=== PATIENT | female | born 1965 | race Hispanic/Latino ===

== ENCOUNTER 2017-06-15 07:05 | Emergency (ER) | payer BC ==
[~2017-06-15] VITALS: Ht 162.6 cm; Wt 80.0 kg
[2017-06-15 07:17] VITALS: BP 120/81
[2017-06-15] MEDS ORDERED: ZITHROMAX Z-PA250 MG PO (07:29)
[2017-06-15] MEDS ORDERED: CHERATUSSIN PO (07:40)
== END 2017-06-15 08:08 | disposition home or self-care (01) | DRG 153 ==
LOC: ED 07:05
DX: J06.9 Acute upper respiratory infection, unspecified (principal)

== ENCOUNTER 2017-07-29 11:43 | Emergency (ER) | payer BC ==
[~2017-07-29] VITALS: Ht 162.6 cm; Wt 78.0 kg
[~2017-07-29 11:43] MED LIST: CHERATUSSIN PO; ZITHROMAX Z-PA250 MG PO
[2017-07-29 12:26] LABS: INFLUENZA A NONE DETECTED (NONE DETECT); INFLUENZA B NONE DETECTED (NONE DETECT)
[2017-07-29 12:49] LABS: HEMATOCRIT 38.7 % (37.0-47.0); IMMATURE GRANULOCYTES 0.3 % (0.0-1.0); MEAN CELL VOLUME 92.6 fL CALC (80.0-100.0); MEAN CORPUSCULAR HGB 31.1 pG CALC (26.0-32.0); MEAN CORPUSCULAR HGB CONC 33.6 g/L CALC (32.0-36.0); NEUT# 5.91 thou/uL (2.00-7.15); RED BLOOD COUNT 4.18 mill/uL (4.20-5.60); RED CELL DISTRI WIDTH 13.6 % (11.5-15.5); URINE BILIRUBIN - DIPSTICK NEGATIVE (NEGATIVE); URINE BLOOD DIPSTICK NEGATIVE (NEGATIVE); URINE COLOR YELLOW; URINE GLUCOSE - DIPSTICK NEGATIVE (NEGATIVE); URINE KETONE NEGATIVE (NEGATIVE); URINE LEUK ESTERASE NEGATIVE (NEGATIVE); URINE NITRITE - DIPSTICK NEGATIVE (Negative); URINE PROTEIN - DIPSTICK NEGATIVE (NEG-TRACE); URINE SPECIFIC GRAVITY >=1.030; URINE UROBILINOGEN - DIPSTICK 0.2 E.U./dL (0.2)
[2017-07-29 12:52] LABS: URINE CLARITY SL CLOUDY
[2017-07-29 13:02] LABS: ALBUMIN 4.5 g/dL (3.2-5.0); ALKALINE PHOSPHATASE 107 u/l (38-126); ANION GAP 19 (6-22 (CALC)); BILIRUBIN, TOTAL 0.4 mg/dL (0.0-1.4); BUN 10 mg/dL (7-17); BUN/CREATININE RATIO 15 (12-20 (CALC)); CARBON DIOXIDE 28 mmol/l (22-30); CHLORIDE 101 mmol/l (95-108); CREATININE 0.7 mg/dL (0.5-1.0); GFR > 60 ML/MIN (>=60 (CALC)); GFR FOR AFR.AMER. > 60 ML/MIN (>=60 (CALC)); POTASSIUM 3.4 mmol/l (3.5-5.1); SGOT/AST 42 u/l (14-36); SGPT/ALT 55 u/l (9-52); SODIUM 144 mmol/l (137-146); TOTAL PROTEIN 7.8 g/dL (6.3-8.2)
[2017-07-29] MEDS ORDERED: TORADOL PO (13:10)
[2017-07-29] MEDS ORDERED: ZOFRAN4 MG/TAB PO (13:10)
[2017-07-29 13:20] VITALS: BP 126/88
== END 2017-07-29 13:20 | disposition home or self-care (01) | DRG 103 ==
LOC: ED 11:43
PROVIDERS: Emergency Medicine
DX: R51 Headache (principal)

== ENCOUNTER 2019-08-31 | Observation (INO) | payer SELFPAY ==
[~2019-08-31] MED LIST changes: +TORADOL PO; +ZOFRAN4 MG/TAB PO
[2019-08-31] MEDS ORDERED: CELEBREX200 M1 PO (08:37)
--- NOTE | 2019-08-31 08:40 | NUR ---
PT CHANGED TO GOWN. MONITORS APPLIED. PT AO X 3. [place]OV[place] SPEAKING ONLY. 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 PT REPORTS RIGHT LOWER ABDOMINAL PAIN SINCE LAST NIGHT. ABD TENDER TO PALPATION RIGHT LOWER QUADRANT.
--- NOTE | 2019-08-31 08:45 | NUR ---
PT AMBULATORY TO BATHROOM. URINE SPECIMEN OBTAINED AND SENT TO LAB.
--- NOTE | 2019-08-31 08:54 | NUR ---
PT MEDICATED FOR PAIN AND NAUSEA.
[2019-08-31 09:01] LABS: HEMATOCRIT 38.7 % (37.0-47.0); HEMOGLOBIN 13.1 g/dl (12.0-16.0); IMMATURE GRANULOCYTES 0.3 % (0.0-5.0); MEAN CELL VOLUME 92.6 fL CALC (80.0-100.0); MEAN CORPUSCULAR HGB 31.3 pG CALC (26.0-32.0); MEAN CORPUSCULAR HGB CONC 33.9 g/dL CAL (32.0-36.0); NEUT# 10.93 thou/uL (2.00-7.15); RED BLOOD COUNT 4.18 mill/uL (4.20-5.60); RED CELL DISTRI WIDTH 13.1 % (11.5-15.5)
[2019-08-31 09:03] LABS: URINE BILIRUBIN - DIPSTICK NEGATIVE (NEGATIVE); URINE BLOOD DIPSTICK NEGATIVE (NEGATIVE); URINE COLOR YELLOW; URINE GLUCOSE - DIPSTICK NEGATIVE (NEGATIVE); URINE KETONE NEGATIVE (NEGATIVE); URINE LEUK ESTERASE NEGATIVE (NEGATIVE); URINE NITRITE - DIPSTICK NEGATIVE (Negative); URINE PH 7.5 (4.5-8.0); URINE PROTEIN - DIPSTICK NEGATIVE (NEG-TRACE); URINE SPECIFIC GRAVITY 1.015; URINE UROBILINOGEN - DIPSTICK 0.2 E.U./dL (0.2)
[2019-08-31 09:26] LABS: ALBUMIN 4.7 g/dL (3.2-5.0); ALKALINE PHOSPHATASE 78 u/l (38-126); AMYLASE 56 u/l (30-110); ANION GAP 13 (6-22 (CALC)); BILIRUBIN, TOTAL 0.5 mg/dL (0.0-1.4); BUN 14 mg/dL (7-17); BUN/CREATININE RATIO 21 (12-20 (CALC)); CARBON DIOXIDE 29 mmol/l (22-30); CHLORIDE 100 mmol/l (95-108); CREATININE 0.7 mg/dL (0.5-1.0); GFR > 60 ML/MIN (>=60 (CALC)); GFR FOR AFR.AMER. > 60 ML/MIN (>=60 (CALC)); LIPASE 34 u/l (23-300); POTASSIUM 3.8 mmol/l (3.5-5.1); SGOT/AST 40 u/l (14-36); SODIUM 139 mmol/l (137-146)
--- NOTE | 2019-08-31 09:27 | NUR ---
PT REPORTS PAIN 5/10 AT THIS TIME. RESTING ON STRETCHER, TALKING ON PHONE
--- NOTE | 2019-08-31 09:57 | NUR ---
RETURNED FROM CT. WARM BLANKET GIVEN, POSITIONED FOR COMFORT
--- NOTE | 2019-08-31 10:10 | NUR ---
SBAR PRINTED TO FLOOR
--- NOTE | 2019-08-31 10:22 | NUR ---
ANTIBIOTICS STARTED. PT AWAITING OR.
--- NOTE | 2019-08-31 10:50 | NUR ---
PT TO OR VIA STRETCHER.
--- NOTE | 2019-08-31 10:54 | NUR ---
REPORT GIVEN TO [facility]
[2019-08-31 13:49] LABS: PROTHROMBIN TIME 10.7 SECONDS (9.0-12.5)
== END 2019-08-31 14:07 | disposition home or self-care (01) | DRG 343 ==
PROVIDERS: ADMIT Surgery
PROC: 0DTJ4ZZ Resection of Appendix, Percutaneous Endoscopic Approach (ICD-10-PCS; principal; 2019-08-31)
DX: K35.30 Acute appendicitis with localized peritonitis, without perforation or gangrene (principal); Z11.59 Encounter for screening for other viral diseases
CPT/HCPCS: Q9967

== ENCOUNTER 2020-03-20 06:51 | Emergency (ER) | payer SELFPAY ==
[~2020-03-20] VITALS: Ht 162.6 cm; Wt 78.0 kg
[~2020-03-20 06:51] MED LIST changes: +CELEBREX200 M1 PO
[2020-03-20 07:32] LABS: HEMATOCRIT 40.1 % (37.0-47.0); HEMOGLOBIN 13.3 g/dl (12.0-16.0); IMMATURE GRANULOCYTES 0.4 % (0.0-5.0); MEAN CELL VOLUME 93.3 fL CALC (80.0-100.0); MEAN CORPUSCULAR HGB 30.9 pG CALC (26.0-32.0); MEAN CORPUSCULAR HGB CONC 33.2 g/dL CAL (32.0-36.0); NEUT# 14.49 thou/uL (2.00-7.15); RED BLOOD COUNT 4.3 mill/uL (4.20-5.60); RED CELL DISTRI WIDTH 13.5 % (11.5-15.5)
[2020-03-20] MEDS ORDERED: CETIRIZINE10 MG PO (07:36)
[2020-03-20 07:46] LABS: URINE BILIRUBIN - DIPSTICK NEGATIVE (NEGATIVE); URINE BLOOD DIPSTICK TRACE-INTACT (NEGATIVE); URINE COLOR YELLOW; URINE GLUCOSE - DIPSTICK NEGATIVE (NEGATIVE); URINE KETONE TRACE mg/dL (NEGATIVE); URINE LEUK ESTERASE NEGATIVE (NEGATIVE); URINE NITRITE - DIPSTICK NEGATIVE (Negative); URINE PROTEIN - DIPSTICK TRACE mg/dL (NEG-TRACE); URINE SPECIFIC GRAVITY >=1.030; URINE UROBILINOGEN - DIPSTICK 0.2 E.U./dL (0.2)
[2020-03-20 07:58] LABS: ALBUMIN 4.5 g/dL (3.2-5.0); ALKALINE PHOSPHATASE 99 u/l (38-126); ANION GAP 16 (6-22 (CALC)); BILIRUBIN, TOTAL 0.5 mg/dL (0.0-1.4); BUN 10 mg/dL (7-17); BUN/CREATININE RATIO 13 (12-20 (CALC)); CARBON DIOXIDE 27 mmol/l (22-30); CHLORIDE 101 mmol/l (95-108); CREATININE 0.8 mg/dL (0.5-1.0); GFR > 60 ML/MIN (>=60 (CALC)); GFR FOR AFR.AMER. > 60 ML/MIN (>=60 (CALC)); POTASSIUM 3.9 mmol/l (3.5-5.1); SGOT/AST 31 u/l (14-36); SODIUM 140 mmol/l (137-146); TOTAL PROTEIN 8.4 g/dL (6.3-8.2)
[2020-03-20 10:21] VITALS: BP 102/60
== END 2020-03-20 10:30 | disposition home or self-care (01) | DRG 816 ==
LOC: ED 06:51
PROVIDERS: Family Medicine
DX: D72.829 Elevated white blood cell count, unspecified (principal); R51.9 Headache, unspecified; R11.0 Nausea; M79.605 Pain in left leg; M79.604 Pain in right leg; Z20.828 Contact with and (suspected) exposure to other viral communicable diseases

== ENCOUNTER 2021-07-03 09:21 | Day surgery (SDC) | payer SELFPAY ==
[~2021-07-03] VITALS: Ht 144.8 cm; Wt 78.9 kg
[~2021-07-03 09:21] MED LIST changes: +CETIRIZINE10 MG PO
[2021-07-03 11:33] VITALS: BP 122/68
== END 2021-07-03 11:44 | disposition home or self-care (01) | DRG 951 ==
LOC: ENDO 09:21
PROVIDERS: ATTEND Surgery
PROC: 0DJD8ZZ Inspection of Lower Intestinal Tract, Via Natural or Artificial Opening Endoscopic (ICD-10-PCS; principal; 2021-07-03)
DX: Z12.11 Encounter for screening for malignant neoplasm of colon (principal); K59.00 Constipation, unspecified

== ENCOUNTER 2022-08-04 09:17 | Emergency (ER) | payer OTHER ==
[~2022-08-04] VITALS: Ht 144.8 cm; Wt 63.0 kg
[2022-08-04 09:54] VITALS: BP 130/87
[2022-08-04 10:00] VITALS: BP 124/83
[2022-08-04 10:31] VITALS: BP 118/55
[2022-08-04 11:00] VITALS: BP 120/80
[2022-08-04 11:30] VITALS: BP 122/73
[2022-08-04] MEDS ORDERED: PAXLOVID PO (11:45)
[2022-08-04 12:05] VITALS: BP 122/73
== END 2022-08-04 12:42 | disposition home or self-care (01) | DRG 179 ==
LOC: ED 09:17
DX: U07.1 COVID-19 (principal); R51.9 Headache, unspecified; R50.9 Fever, unspecified; E78.00 Pure hypercholesterolemia, unspecified